=== PATIENT | female | born 1980 | race Asian ===

== ENCOUNTER 2020-02-22 09:49 | Emergency (ER) | payer OTHER ==
[2020-02-22 09:57] VITALS: BP 140/87; PULSE 92; TEMP 98.8; BMI 25.2
[2020-02-22 11:52] LABS: BASO % 0.9 % (0-2.0); HEMATOCRIT 40.2 % (32.4-45.2); HEMOGLOBIN 13.5 GM/dL (10.7-15.3); MCH 30.5 pg (25.7-33.7); MCHC 33.5 g/dl (32.0-36.0); MEAN CELL VOLUME 90.8 fl (80-96); MEAN PLT VOLUME 8.8 fl (7.5-11.1); MONO % 6.8 % (3.8-10.2); NEUT % 63.3 % (42.8-82.8); PLATELET COUNT 377 K/MM3 (134-434); RBC 4.43 M/mm3 (3.60-5.2); RDW 12.5 % (11.6-15.6); WHITE BLOOD COUNT 7.1 K/mm3 (4.0-10.0)
[2020-02-22 12:07] LABS: POTASSIUM 4.1 mmol/L (3.5-5.1)
[2020-02-22 12:10] LABS: CALCIUM 8.8 mg/dL (8.5-10.1)
[2020-02-22 12:11] LABS: ALBUMIN 3.6 g/dl (3.4-5.0); BLOOD UREA NITROGEN 10.6 mg/dL (7-18)
[2020-02-22 12:14] LABS: CREATININE 0.5 mg/dL (0.55-1.3)
[2020-02-22 12:16] LABS: BILIRUBIN,TOTAL 0.3 mg/dL (0.2-1)
== END 2020-02-22 14:43 | disposition home or self-care (01) ==
LOC: JER 09:49
DX: N93.9 Abnormal uterine and vaginal bleeding, unspecified (principal)
CPT/HCPCS: 76830-TC; 80053; 84703; 85025; 86850; 86900; 86901; 87086; 99284-25

== ENCOUNTER 2020-10-24 20:01 | Emergency (ER) | payer OTHER ==
[2020-10-24 20:39] VITALS: BMI 23.2
[2020-10-24 21:59] LABS: HEMATOCRIT 33.1 % (32.4-45.2); HEMOGLOBIN 11.5 GM/dL (10.7-15.3); MCH 30.7 pg (25.7-33.7); MCHC 34.7 g/dl (32.0-36.0); MEAN CELL VOLUME 88.4 fl (80-96); MEAN PLT VOLUME 7.7 fl (7.5-11.1); PLATELET COUNT 401 10^3/uL (134-434); RBC 3.75 M/mm3 (3.60-5.2); RDW 13.2 % (11.6-15.6); WHITE BLOOD COUNT 8.2 K/mm3 (4.0-10.0)
[2020-10-24 22:03] LABS: EPI CELLS 5 /uL (0-25.1); HYALINE CASTS 0 /uL (0-3.1); PH,URINE 5.5 (5.0-8.0); URINE APPEARANCE CLEAR; URINE BACTERIA 57 /uL (0-1359); URINE BILIRUBIN NEGATIVE (NEGATIVE); URINE COLOR DK YELLOW; URINE GLUCOSE (UA) NEGATIVE (NEGATIVE); URINE KETONE NEGATIVE (NEGATIVE); URINE LEUK ESTERASE NEGATIVE (NEGATIVE); URINE NITRITE NEGATIVE (NEGATIVE); URINE PROTEIN 1+ (NEGATIVE); URINE UROBILINOGEN 0.2 mg/dL (0.2-1.0); URINE WBC 6 /uL (0-25.8)
[2020-10-24 22:41] VITALS: BP 124/78; PULSE 83; TEMP 98.7
[2020-10-24 22:54] LABS: URINE CRYSTALS MANY /hpf; URINE RBC 7102.3 /uL (0-23.9)
== END 2020-10-24 22:41 | disposition home or self-care (01) ==
LOC: JER 20:01
DX: N92.1 Excessive and frequent menstruation with irregular cycle (principal)
CPT/HCPCS: 36415; 81003; 84703; 85027; 87086; 99283-25

== ENCOUNTER 2023-04-27 15:27 | Inpatient (IN) | payer OTHER ==
[2023-04-27] MEDS: KETOROLAC TROMETHAMINE 15 MG/ML VIAL IVPUSH ONE (17:12)
[2023-04-27] MEDS ORDERED: KETOROLAC TROMETHAMINE 15 MG/ML VIAL ONE (17:13)
[2023-04-27 17:59] LABS: BASO % 0.2 % (0-2.0); EOS % 0.1 % (0-4.5); HEMATOCRIT 35.5 % (32.4-45.2); HEMOGLOBIN 11.8 GM/dL (10.7-15.3); MCH 28.6 pg (25.7-33.7); MCHC 33.3 g/dl (32.0-36.0); MEAN PLT VOLUME 7.5 fl (7.5-11.1); MONO % 7.3 % (3.8-10.2); NEUT % 83.4 % (42.8-82.8); PLATELET COUNT 417 10^3/uL (134-434); RBC 4.13 M/mm3 (3.60-5.2); RDW 16.1 % (11.6-15.6); WHITE BLOOD COUNT 13.3 K/mm3 (4.0-10.0)
[2023-04-27 18:04] LABS: EPI CELLS 5 /uL (0-25.1); HCG,QUALITATIVE URINE Negative; HYALINE CASTS 0 /uL (0-3.1); PH,URINE 6.5 (5.0-8.0); URINE APPEARANCE CLEAR; URINE BACTERIA 93 /uL (0-1359); URINE BILIRUBIN NEGATIVE (NEGATIVE); URINE COLOR YELLOW; URINE GLUCOSE (UA) NEGATIVE (NEGATIVE); URINE KETONE NEGATIVE (NEGATIVE); URINE LEUK ESTERASE NEGATIVE (NEGATIVE); URINE NITRITE NEGATIVE (NEGATIVE); URINE PROTEIN 1+ (NEGATIVE); URINE RBC 10 /uL (0-23.9); URINE UROBILINOGEN 0.2 mg/dL (0.2-1.0); URINE WBC 12 /uL (0-25.8)
[2023-04-27 18:05] LABS: INR 0.97 (0.83-1.09); PROTHROMBIN TIME (PATIENT) 11.3 SEC (9.7-13.0)
[2023-04-27 18:08] LABS: ACTIVATED PTT 37.2 SECONDS (25.2-36.5)
[2023-04-27 18:25] LABS: CHLORIDE 104 mmol/L (98-107); POTASSIUM 3.7 mmol/L (3.5-5.1); SODIUM 140 mmol/L (136-145)
[2023-04-27 18:27] LABS: ALBUMIN 3.4 g/dl (3.4-5.0); ANION GAP 7 mmol/L (4-13); BLOOD UREA NITROGEN 7.4 mg/dL (7-18); CALCIUM 9.3 mg/dL (8.5-10.1); CO2 29 mmol/L (21-32); GLUCOSE,RANDOM 127 mg/dL (74-106)
[2023-04-27 18:30] LABS: SGOT/AST 61 U/L (15-37); SGPT/ALT 67 U/L (13-61)
[2023-04-27 18:31] LABS: CREATININE 0.5 mg/dL (0.55-1.3)
[2023-04-27 18:32] LABS: BILIRUBIN,TOTAL 0.4 mg/dL (0.2-1)
[2023-04-27 18:33] LABS: ALK PHOS 92 U/L (45-117)
[2023-04-27] MEDS ORDERED: ACETAMINOPHEN INJECTION 100 ML IVPB ONE (21:58)
[2023-04-27] MEDS ORDERED: ONDANSETRON 4 MG/2 ML VIAL ONE (21:58)
[2023-04-27] MEDS: ACETAMINOPHEN 1000 MG/100 ML BAG IVPB ONE (22:04)
[2023-04-27] MEDS: ONDANSETRON 4 MG/2 ML VIAL IVPUSH ONE (22:04)
[2023-04-27] MEDS: morphine CARPU-JECT 2 MG/1 ML DISP.SYRIN IVPUSH ONE (23:23)
[2023-04-27] MEDS ORDERED: DOXYCYCLINE HYCLATE 100 MG VIAL ONE (23:35)
[2023-04-27] MEDS ORDERED: LIDOCAINE HCL 1%, 10 MG/ML (20ML VIAL) ONE (23:35)
[2023-04-27] MEDS ORDERED: cefTRIAXone SODIUM 1 GM VIAL ONE (23:35)
[2023-04-27] MEDS: DOXYCYCLINE INJECTION 100 MG in DEXTROSE 5%-WATER 100 ML IVPB ONE (23:48)
[2023-04-28] MEDS: morphine CARPU-JECT 2 MG/1 ML DISP.SYRIN IVPUSH ONE (01:44)
[2023-04-28] MEDS ORDERED: CEFTRIAXONE 1 GM/50 ML BAG ONE (05:29)
[2023-04-28] MEDS: CEFTRIAXONE 500 MG in DEXTROSE 5%-WATER - 50 ML IVPB ONE (06:27)
[2023-04-28] MEDS: KETOROLAC TROMETHAMINE 15 MG/ML VIAL IM PRN (06:46)
[2023-04-28] MEDS ORDERED: KETOROLAC TROMETHAMINE 15 MG/ML VIAL IM PRN ×2 (06:49→10:21)
[2023-04-28 07:12] LABS: BASO % 0.5 % (0-2.0); EOS % 0.6 % (0-4.5); HEMATOCRIT 28.3 % (32.4-45.2); HEMOGLOBIN 9.5 GM/dL (10.7-15.3); LYMPH % 12.4 % (8-40); MCH 29.2 pg (25.7-33.7); MCHC 33.5 g/dl (32.0-36.0); MEAN CELL VOLUME 87.2 fl (80-96); MEAN PLT VOLUME 7.7 fl (7.5-11.1); MONO % 9.8 % (3.8-10.2); NEUT % 76.7 % (42.8-82.8); PLATELET COUNT 342 10^3/uL (134-434); RBC 3.25 M/mm3 (3.60-5.2); RDW 16.5 % (11.6-15.6); WHITE BLOOD COUNT 10.1 K/mm3 (4.0-10.0)
[2023-04-28 08:00] LABS: POTASSIUM 3.8 mmol/L (3.5-5.1)
[2023-04-28 08:03] LABS: ALBUMIN 2.8 g/dl (3.4-5.0); BLOOD UREA NITROGEN 12.6 mg/dL (7-18); CALCIUM 8.6 mg/dL (8.5-10.1)
[2023-04-28 08:06] LABS: MAGNESIUM 2.1 mg/dL (1.8-2.4); PHOSPHOROUS 3.6 mg/dL (2.5-4.9)
[2023-04-28 08:07] LABS: CREATININE 0.6 mg/dL (0.55-1.3)
[2023-04-28 08:08] LABS: BILIRUBIN,TOTAL 0.3 mg/dL (0.2-1)
[2023-04-28] MEDS ORDERED: ACETAMINOPHEN INJECTION 100 ML IVPB ONE (09:15)
[2023-04-28] MEDS ORDERED: DOXYCYCLINE HYCLATE 100 MG VIAL ONE (09:16)
[2023-04-28] MEDS: ACETAMINOPHEN 1000 MG/100 ML BAG IVPB PRN (09:30)
[2023-04-28] MEDS ORDERED: morphine SULFATE 4 MG/ML VIAL IVPUSH PRN (10:20)
[2023-04-28] MEDS ORDERED: ACETAMINOPHEN 1000 MG/100 ML BAG IVPB PRN (10:21)
[2023-04-28] MEDS: LOSARTAN 50MG/HCTZ 12.5MG 1 TAB PO SCH (11:55)
[2023-04-28] MEDS ORDERED: KETOROLAC TROMETHAMINE 30 MG/1 ML VIAL ONE (11:56)
[2023-04-28] MEDS: KETOROLAC TROMETHAMINE 15 MG/ML VIAL IVPUSH SCH (12:00)
[2023-04-28] MEDS: DOXYCYCLINE INJECTION 100 MG in DEXTROSE 5%-WATER 100 ML IVPB SCH (12:00)
[2023-04-28] MEDS ORDERED: oxyCODONE HCL 5 MG TABLET ONE (13:39)
[2023-04-28] MEDS: oxyCODONE HCL 5 MG TABLET PO SCH (13:49)
[2023-04-28] MEDS: ENOXAPARIN NA (PORCINE) 40 MG/0.4 ML DISP.SYRIN SQ SCH (14:03)
[2023-04-28] MEDS ORDERED: ACETAMINOPHEN 1000 MG/100 ML BAG IVPB SCH (15:30)
[2023-04-28 15:37] VITALS: BMI 24.5
[2023-04-28] MEDS: HYDROmorphone HCl 2 MG/ML VIAL IVPB PRN (15:49)
[2023-04-28] MEDS ORDERED: diphenhydrAMINE HCL 25 MG CAPSULE (FP) PO PRN (19:00)
[2023-04-28] MEDS: ACETAMINOPHEN 1000 MG/100 ML BAG IVPB SCH (19:26)
[2023-04-29] MEDS: CEFTRIAXONE 1 GM in DEXTROSE 5%-WATER - 50 ML IVPB SCH (09:45)
[2023-04-29 09:51] LABS: HEMATOCRIT 27.4 % (32.4-45.2); HEMOGLOBIN 9.2 GM/dL (10.7-15.3); MCH 29.2 pg (25.7-33.7); MCHC 33.5 g/dl (32.0-36.0); MEAN CELL VOLUME 87.4 fl (80-96); MEAN PLT VOLUME 7.7 fl (7.5-11.1); PLATELET COUNT 331 10^3/uL (134-434); RBC 3.14 M/mm3 (3.60-5.2); RDW 15.9 % (11.6-15.6); WHITE BLOOD COUNT 6.3 K/mm3 (4.0-10.0)
[2023-04-29] MEDS ORDERED: HYDROmorphone HCl 2 MG/ML VIAL IVPB PRN (11:46)
[2023-04-29 11:48] LABS: POTASSIUM 4.2 mmol/L (3.5-5.1)
[2023-04-29 11:54] LABS: CALCIUM 8.7 mg/dL (8.5-10.1)
[2023-04-29 11:55] LABS: ALBUMIN 2.7 g/dl (3.4-5.0); BLOOD UREA NITROGEN 11.9 mg/dL (7-18)
[2023-04-29 11:58] LABS: CREATININE 0.4 mg/dL (0.55-1.3)
[2023-04-29 11:59] LABS: BILIRUBIN,TOTAL 0.4 mg/dL (0.2-1)
[2023-04-29 14:15] VITALS: RESP 18
[2023-04-30 10:07] LABS: HEMATOCRIT 29.4 % (32.4-45.2); HEMOGLOBIN 9.8 GM/dL (10.7-15.3); MCH 28.9 pg (25.7-33.7); MCHC 33.4 g/dl (32.0-36.0); MEAN CELL VOLUME 86.5 fl (80-96); MEAN PLT VOLUME 7.7 fl (7.5-11.1); PLATELET COUNT 386 10^3/uL (134-434); RDW 15.9 % (11.6-15.6); WHITE BLOOD COUNT 4.5 K/mm3 (4.0-10.0)
[2023-04-30 10:27] LABS: POTASSIUM 4.3 mmol/L (3.5-5.1)
[2023-04-30 10:31] LABS: ALBUMIN 2.8 g/dl (3.4-5.0); BLOOD UREA NITROGEN 12.7 mg/dL (7-18); CALCIUM 8.3 mg/dL (8.5-10.1)
[2023-04-30 10:34] LABS: CREATININE 0.4 mg/dL (0.55-1.3)
[2023-04-30 10:36] LABS: BILIRUBIN,TOTAL 0.2 mg/dL (0.2-1); TOT PROT 6.1 g/dl (6.4-8.2)
[2023-04-30] MEDS: oxyCODONE HCL 5 MG TABLET PO PRN (23:13)
[2023-05-01 10:13] LABS: HEMOGLOBIN 9.7 GM/dL (10.7-15.3); MCH 28.6 pg (25.7-33.7); MCHC 33.3 g/dl (32.0-36.0); MEAN CELL VOLUME 85.8 fl (80-96); MEAN PLT VOLUME 7.3 fl (7.5-11.1); PLATELET COUNT 402 10^3/uL (134-434); RBC 3.38 M/mm3 (3.60-5.2); RDW 15.2 % (11.6-15.6); WHITE BLOOD COUNT 4.6 K/mm3 (4.0-10.0)
[2023-05-01 10:27] LABS: POTASSIUM 4.1 mmol/L (3.5-5.1)
[2023-05-01 10:31] LABS: ALBUMIN 2.7 g/dl (3.4-5.0); BLOOD UREA NITROGEN 9.4 mg/dL (7-18); CALCIUM 8.8 mg/dL (8.5-10.1)
[2023-05-01 10:34] LABS: CREATININE 0.5 mg/dL (0.55-1.3)
[2023-05-01 10:36] LABS: BILIRUBIN,TOTAL 0.2 mg/dL (0.2-1)
[2023-05-01 13:55] VITALS: BP 138/82; PULSE 75; TEMP 98.6
== END 2023-05-01 18:29 | disposition home or self-care (01) | DRG 759 ==
LOC: JER 15:27 → JERBED 23:15 → OBSVTOIN 04-28 08:07 → J8W 04-28 15:14
PROVIDERS: ADMIT Internal Medicine; ATTEND Internal Medicine
DX: N70.93 Salpingitis and oophoritis, unspecified (principal); K76.0 Fatty (change of) liver, not elsewhere classified; R00.0 Tachycardia, unspecified; D72.829 Elevated white blood cell count, unspecified; I10 Essential (primary) hypertension; B96.89 Other specified bacterial agents as the cause of diseases classified elsewhere; Z88.0 Allergy status to penicillin
CPT/HCPCS: 0241U-QW; 36415; 74177-TC; 76830-TC; 80053; 81003; 82728; 83540; 83550; 83735; 84100; 84466; 84702; 84703; 85025; 85027; 85045; 85610; 85730; 86140; 86705; 86708; 86850; 86900; 86901; 87070; 87077; 87086; 87205; 87340; 87491; 87517; 87522; 87591; 87902; 93005; 93010; 99285-25; G0378; J0131; Q9967